=== PATIENT | male | born 1950 | race Two or more races ===

== ENCOUNTER 2024-01-13 14:42 | Emergency (ER) | payer OTHER ==
[~2024-01-13] VITALS: Ht 167.6 cm; Wt 79.8 kg
[~2024-01-13 14:42] MED LIST: AMIODARONE HCL200 MG PO; ASPIR 8181 MG; TOPROL XL100 M1 PO; XARELTO20 MG PO
[2024-01-13] MEDS ORDERED: ELIQUIS5 MG PO (15:15)
[2024-01-13] MEDS ORDERED: ENTRESTO 24 MG1 EACH PO (15:16)
[2024-01-13] MEDS ORDERED: METFORMIN HCL500 MG (15:16)
[2024-01-13] MEDS ORDERED: ACETAMINOPHEN 500 MG GEL..CAP PO ONE (16:15)
== END 2024-01-13 20:12 ==
LOC: ER 14:44
DX: S02.2XXA Fracture of nasal bones, initial encounter for closed fracture (principal); S60.222A Contusion of left hand, initial encounter; S60.221A Contusion of right hand, initial encounter; S00.93XA Contusion of unspecified part of head, initial encounter; W10.8XXA Fall (on) (from) other stairs and steps, initial encounter; Y93.89 Activity, other specified; Y92.018 Other place in single-family (private) house as the place of occurrence of the external cause; Y99.9 Unspecified external cause status; E11.9 Type 2 diabetes mellitus without complications; Z79.84 Long term (current) use of oral hypoglycemic drugs; I25.2 Old myocardial infarction